=== PATIENT | female | born 1940 | race Caucasian/White ===

== ENCOUNTER → 2019-07-20 12:11 | Outpatient (BNVA) | payer MEDICARE, SELFPAY | PROVIDERS: Family Provider Nurse Practitioner; Visit Provider Nurse Practitioner | DX: I10 Essential (primary) hypertension (principal) | CPT/HCPCS: 80053; 80061; 82607; 84443 ==

== ENCOUNTER → 2019-10-18 10:40 | Outpatient (BNVA) | payer MEDICARE, SELFPAY | PROVIDERS: Family Provider Nurse Practitioner; PCP Nurse Practitioner; Visit Provider Nurse Practitioner | DX: I10 Essential (primary) hypertension (principal) | CPT/HCPCS: 80053 ==

== ENCOUNTER → 2020-01-22 08:50 | Outpatient (BNVA) | payer SELFPAY | PROVIDERS: Family Provider Nurse Practitioner; PCP Nurse Practitioner; Visit Provider Nurse Practitioner | DX: I10 Essential (primary) hypertension (principal); F41.8 Other specified anxiety disorders | CPT/HCPCS: 80053; 80061 ==

== ENCOUNTER → 2020-07-21 11:40 | Outpatient (BNVA) | payer MEDICARE, SELFPAY | PROVIDERS: Family Provider Nurse Practitioner; PCP Nurse Practitioner; Visit Provider Nurse Practitioner | DX: I10 Essential (primary) hypertension (principal); F41.8 Other specified anxiety disorders; Z68.31 Body mass index [BMI] 31.0-31.9, adult | CPT/HCPCS: 80053; 80061; 84443; 85025 ==

== ENCOUNTER → 2020-08-08 10:20 | Outpatient (BNVA) | payer MEDICARE, SELFPAY | PROVIDERS: Family Provider Nurse Practitioner; PCP Nurse Practitioner; Visit Provider Nurse Practitioner | DX: I10 Essential (primary) hypertension (principal) | CPT/HCPCS: 81003 ==

== ENCOUNTER → 2021-04-23 09:03 | Outpatient (BNVA) | payer MEDICARE, SELFPAY | PROVIDERS: Family Provider Nurse Practitioner; PCP Nurse Practitioner; Visit Provider Nurse Practitioner Family | DX: I10 Essential (primary) hypertension (principal); F41.8 Other specified anxiety disorders; Z68.31 Body mass index [BMI] 31.0-31.9, adult | CPT/HCPCS: 80053; 80061; 84443; 85025 ==

== ENCOUNTER → 2021-07-08 10:08 | Outpatient (BNVA) | payer MEDICARE, SELFPAY | PROVIDERS: Family Provider Nurse Practitioner; PCP Nurse Practitioner; Visit Provider Nurse Practitioner | DX: I10 Essential (primary) hypertension (principal); N39.0 Urinary tract infection, site not specified | CPT/HCPCS: 81000; 87077; 87086; 87184 ==

== ENCOUNTER → 2021-10-21 09:39 | Outpatient (BNVA) | payer MEDICARE, SELFPAY | PROVIDERS: Family Provider Nurse Practitioner; PCP Nurse Practitioner; Visit Provider Nurse Practitioner | DX: I10 Essential (primary) hypertension (principal) | CPT/HCPCS: 80053; 80061; 82607; 84443 ==

== ENCOUNTER → 2022-04-27 15:55 | Outpatient (BNVA) | payer MEDICARE, SELFPAY | PROVIDERS: Family Provider Nurse Practitioner; PCP Nurse Practitioner; Visit Provider Nurse Practitioner | DX: I10 Essential (primary) hypertension (principal) | CPT/HCPCS: 80053; 80061; 84443 ==

== ENCOUNTER → 2022-10-19 10:38 | Outpatient (BNVA) | payer MEDICARE, SELFPAY | PROVIDERS: Family Provider Nurse Practitioner; PCP Nurse Practitioner; Visit Provider Nurse Practitioner | DX: I10 Essential (primary) hypertension (principal) | CPT/HCPCS: 80053; 80061; 84443 ==

== ENCOUNTER → 2023-04-04 11:12 | Outpatient (BNVA) | payer MEDICARE, SELFPAY | PROVIDERS: Family Provider Nurse Practitioner; PCP Nurse Practitioner; Visit Provider Nurse Practitioner | DX: I10 Essential (primary) hypertension (principal) | CPT/HCPCS: 81000 ==

== ENCOUNTER 2023-06-07 10:53 | Outpatient (CLI) | payer MEDICARE, SELFPAY ==
--- NOTE | 2023-06-07 11:15 | USCV_ITS ---
Rosalie Piedra Age: 83 Gender: F : 1940 Exam Date: 06/07/2023 11:15 Ordering Phys: Crystal Hernandez Technologist: CT Exam Location: [facility]_ Indication: htn Aortic Velocity @ SMA (cm/s) RIGHT KIDNEY LEFT KIDNEY Velocity (cm/s) Velocity (cm/s) Sys/Galloway Sys/Galloway Resistive Index Resistive Index 128.1 / 29.4 0.77 Mid Renal Artery 84.6 / 25.0 0.70 71.1 / 17.2 0.76 Distal Renal Artery 96.9 / 25.0 0.74 64.3 / 17.2 0.70 Hilar 74.3 / 20.9 0.71 13.6 / 0.0 1.00 Upper Pole 52.1 / 0.0 1.00 24.6 / 6.1 0.75 Mid Pole 40.9 / 2.7 0.90 35.9 / 9.4 0.73 Lower Pole 47.6 / 0.0 1.00 1.10 Renal Aortic Ratio 0.90 Accleration Time (sec) 0.12 Hilar 0.14 0.02 Upper Pole 0.14 0.19 Mid Pole 1.98 0.09 Lower Pole 0.15 10.4 Kidney Length (cm) 10.0 FINDINGS No comparison. Mild atrophy of each renal cortex. Technically difficult study. Abnormal waveforms in left kidney. No elevation of velocity. CONCLUSIONS Examination limited . Incomplete evaluation of the renal arteries. Consider additonal imaging by CTA. Dr. Alyssa Sneior DO (Electronically Signed) Final Date: 07 June 2023 13:25 S
--- NOTE | 2023-06-07 12:00 | US_ITS ---
WS: [id number] RENAL ULTRASOUND HISTORY: I10 - Essential (primary) hypertension COMPARISON: None available. TECHNIQUE: 2-D and color Doppler imaging of the kidney submitted. Right kidney: 10.3 cm x 3.3 cm x 4.1 cm. Cortex: 1.1 cm Normal size kidney. Mild cortical thinning. Exophytic cyst from the mid kidney measures 1.2 x 1.3 x 1 .3 cm. No solid mass or obstruction. Left kidney: 10.4 cm x 3.7 cm x 4.8 cm. Cortex: 1.3 cm Complex cyst with thin septation in the mid kidney measures 3.7 x 3.3 x 3.2 cm. No increased vascular ity. Aorta: Normal. Urinary Bladder: Normal distention. IMPRESSION: 1. No hydronephrosis. 2. Complex cystic mass mid LEFT kidney measures 3.7 x 3.3 x 3.2 cm. Cystic neoplasm is not excluded. This may be a benign complex cyst. Recommend additional evaluation. Additional imaging may include r enal mass CT protocol, MRI renal mass protocol or follow-up ultrasound in 3 months.
== END 2023-06-07 10:54 | disposition home or self-care (01) ==
LOC: RAD 10:54
PROVIDERS: PCP Nurse Practitioner; Visit Provider Nurse Practitioner
DX: Q61.02 Congenital multiple renal cysts (principal)
CPT/HCPCS: 76770; 93975

== ENCOUNTER → 2023-06-20 09:58 | Outpatient (BNVA) | payer MEDICARE, SELFPAY | PROVIDERS: PCP Nurse Practitioner; Visit Provider Nurse Practitioner | DX: I10 Essential (primary) hypertension (principal); Q61.02 Congenital multiple renal cysts | CPT/HCPCS: 80053; 80061; 85025 ==

== ENCOUNTER 2023-06-28 12:06 | Outpatient (CLI) | payer MEDICARE, SELFPAY ==
--- NOTE | 2023-06-28 12:15 | CT_ITS ---
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 Post contrast imaging t hrough the abdomen and pelvis. Oral contrast has not been provided. Sagittal and coronal reformats a re submitted. All CT scans at [facility] use at least one of these dose optimization techniqu es: automated exposure control; mA and/or kV adjustment per patient size (includes targeted exams whe re dose is matched to clinical indication); or iterative reconstruction. CONTRAST: Omnipaque 350; 95 mL IV. DLP: 1561.04 mGy.cm COMPARISON: Renal ultrasound 06/07/2023 Mildly hyperinflated lung bases. Mild cardiomegaly. Small hiatal hernia. RIGHT kidney: Normal size kidney. No obstruction. Cortical cyst from the upper pole measures 11 x 12 mm. LEFT kidney: Normal size. There is a complex heterogeneous mass extending laterally from the mid to l ower kidney. Mass is of heterogeneous attenuation measuring 3.6 x 3.5 x 3.5 cm. Hounsfield units do n ot significantly enhance. This is consistent with a complex cyst and may contain some hemorrhage. No solid mass. There are a few additional very tiny cortical cysts which are too clear small to characte rize. Moderate atherosclerosis abdominal aorta and mesenteric arteries. Liver and spleen are negative. Ther e are a few splenic granulomata. Normal portal vein. No adrenal mass. Gallbladder is mildly contracte d. Mild pancreatic atrophy. No GI tract obstruction. Normal appendix. No free fluid or adenopathy. Uterus is present and deviated to the RIGHT. No pelvic mass. Osteopenia. Mild degenerative disc disease at L4-5 and L5-S1. CT/CT abdomen pelvis wo/w [id number] IMPRESSION: 1. Heterogeneous mass mid to lower pole LEFT kidney measures 3.6 x 3.5 x 3.5 c m. Hounsfield units are elevated but do not increase with contrast injection. T his is a complex cyst. 2. Additional small simple cyst RIGHT kidney. 3. Atherosclerosis aorta. 4. No ascites or adenopathy.
[2023-06-28] MEDS: iohexol 300 mg/mL 100 mL Btl IV (12:31)
== END 2023-06-28 12:07 | disposition home or self-care (01) ==
LOC: RAD 12:07
PROVIDERS: PCP Nurse Practitioner; Visit Provider Nurse Practitioner
DX: Q61.02 Congenital multiple renal cysts (principal); N28.89 Other specified disorders of kidney and ureter; N28.1 Cyst of kidney, acquired; I70.0 Atherosclerosis of aorta
CPT/HCPCS: 74178; Q9967

== ENCOUNTER → 2023-12-27 11:07 | Outpatient (BNVA) | payer MEDICARE, SELFPAY | PROVIDERS: PCP Nurse Practitioner; Visit Provider Nurse Practitioner | DX: I10 Essential (primary) hypertension (principal) | CPT/HCPCS: 80053; 80061; 81000; 84443 ==

== ENCOUNTER → 2024-04-18 08:18 | Outpatient (BNVA) | payer MEDICARE, SELFPAY | PROVIDERS: PCP Nurse Practitioner; Visit Provider Nurse Practitioner | DX: I10 Essential (primary) hypertension (principal) | CPT/HCPCS: 80053; 84443; 85025 ==

== ENCOUNTER → 2024-07-03 12:37 | Outpatient (BNVA) | payer MEDICARE, SELFPAY | PROVIDERS: PCP Nurse Practitioner; Visit Provider Family Medicine | DX: R39.9 Unspecified symptoms and signs involving the genitourinary system (principal) | CPT/HCPCS: 81000 ==

== ENCOUNTER → 2024-07-31 09:54 | Outpatient (BNVA) | payer MEDICARE, SELFPAY | PROVIDERS: PCP Nurse Practitioner; Visit Provider Nurse Practitioner | DX: E03.8 Other specified hypothyroidism (principal) | CPT/HCPCS: 84439; 84443; 84481 ==

== ENCOUNTER → 2024-10-08 09:06 | Outpatient (BNVA) | payer MEDICARE, SELFPAY | PROVIDERS: PCP Nurse Practitioner; Visit Provider Nurse Practitioner | DX: I10 Essential (primary) hypertension (principal); E03.8 Other specified hypothyroidism | CPT/HCPCS: 80053; 80061; 84439; 84443; 84481 ==

== ENCOUNTER → 2024-10-23 10:20 | Outpatient (BNVA) | payer MEDICARE, SELFPAY | PROVIDERS: PCP Nurse Practitioner; Visit Provider Podiatrist Foot & Ankle Surgery | DX: L84 Corns and callosities (principal) | CPT/HCPCS: 99203 ==